=== PATIENT | male | born 1970 | race Caucasian/White ===

== ENCOUNTER → 2025-02-26 | Outpatient (CLI) | payer OTHER, SELFPAY ==
--- NOTE | 2025-02-26 14:29 | RAD_ITS ---
PROCEDURE: HIPS B/L MIN 2 VIEWS W/ PELVIS 02/26/2025 REASON FOR EXAM: PAIN TECHNIQUE: 6 view bilateral hip series to include the AP pelvis. COMPARISON: None provided. RAD/Hips B/L min 2 views w/ Pelvis IMPRESSION: At least mild left hip joint degenerative changes are seen, with probable mild superior joint narrowing. Severe right hip joint arthritic changes are seen, with deformity on both sides of the articulation, severe narrowing, subchondral cyst formation, and other osseous reactive changes present. Also, asphericity of both femoral heads is seen, right ofgrn-[id number]-[id number]-left. No acute fracture or dislocation is seen. Minimal sacroiliac joint degenerative changes are seen. Degenerative changes are also seen of the visualized lower lumbar spine, partic ularly L4-L5 and L5-S1 levels. Reading Location: [place] [id number]
[2025-02-26 18:01] LABS: Hematocrit 46.1 % (40-54); Hemoglobin 15.6 g/dL (13.0-16.5); Immature Granulocytes Count 0.110 X10^3/uL (0.0-0.0); Mean Corp Hgb Conc 33.8 g/dL (32-36); Mean Corpuscular Volume 94.3 fL (80-94); Mean Platelet Vol. 8.8 fl (6.2-12.0); NRBC Flagged by Analyzer 0 % (0-5); Platelet Count 282 K/mm3 (150-450); RBC Distribution Width CV 12.5 % (11.6-14.6); RBC Distribution Width SD 43.3 fl (35.1-43.9); Red Blood Count 4.89 M/mm3 (4.6-6.2); White Blood Count 10.5 K/mm3 (4.4-11.0)
[2025-02-26 18:25] LABS: AST(SGOT) 20 U/L (<=37); Alanine Aminotransfer ALT/SGPT 35 U/L (<=46); Albumin, Serum 4.2 g/dL (3.5-5.0); Alkaline Phosphatase 55 U/L (40-129); Anion Gap 16 (5-15); BUN 27 mg/dL (4-19); BUN/Creat Ratio 26.3 RATIO (10-20); Calcium,Total 9.7 mg/dL (7.6-11.0); Carbon Dioxide 19.4 mmol/L (21.0-32.0); Chloride 100 mmol/L (98-108); Globulin 3.0 g/dL (2.2-4.2); Glucose 127 mg/dL (70-99); Hepatitis C Antibody Nonreactive (Nonreactive); Potassium 4.5 mmol/L (3.3-5.1)
[2025-02-26 18:30] LABS: CRP < 3.00 mg/L (0.0-3.0)
[2025-02-28 14:09] LABS: ANTINUCLEAR ANTIBODIES DIRECT Negative (Negative)
== END | disposition home or self-care (01) ==
LOC: MTLAB 14:27
PROVIDERS: PCP Nurse Practitioner Family; Referring Provider Internal Medicine Rheumatology; Visit Provider Internal Medicine Rheumatology
DX: M06.4 Inflammatory polyarthropathy (principal); M16.0 Bilateral primary osteoarthritis of hip
CPT/HCPCS: 36415; 73521; 80053; 85025; 85652; 86038; 86140; 86200; 86431; 86707; 86803; 87350